=== PATIENT | female | born 1975 | race Two or more races ===

== ENCOUNTER 2023-10-09 06:27 | Day surgery (SDC) | payer OTHER ==
[2023-10-01 11:09] LABS: HEMATOCRIT 39.7 % (36.0-45.00); HEMOGLOBIN 13.5 g/dL (12.0-15.00); MEAN CELL VOLUME 92.3 fL (80.00-100.00); MEAN CORPUSCULAR HEMOGLOBIN 31.4 pg (27.00-32.0); PLATELET COUNT 213 K/uL (150-450); RED CELL DISTRIBUTION WIDTH 12.6 % (11.5-14.5)
[2023-10-01 11:34] LABS: INR 0.96; PARTIAL THROMBOPLASTIN TIME 25.5 SECONDS (22.0-34.0); PROTHROMBIN TIME 10.1 SECONDS (9.0-11.5)
[2023-10-01 13:08] LABS: BILIRUBIN TOTAL 0.39 mg/dL (0.3-1.2); CALCIUM 9.3 mg/dL (8.5-10.1); CREATININE SERUM 0.72 mg/dL (0.55-1.02); GFR 86.45; GLOBULINA 3.7 G/DL (2.4-3.5); POTASSIUM 4.12 mEq/L (3.5-5.1); TOTAL PROTEIN 7.7 gm/dL (6.4-8.2)
[2023-10-01 13:12] LABS: PH,URINE 6.5 (5.0-8.0); URINE APPEARANCE Clear; URINE BACTERIA 395.5 uL (0.0-1933); URINE BILIRRUBIN Negative (NEGATIVE); URINE BLOOD Negative; URINE COLOR Yellow; URINE EPITHELIAL CELLS 16.6 uL (0.0-38.8); URINE GLUCOSE Negative (NEGATIVE); URINE LEUKOCYTE Negative; URINE NITRATE Negative; URINE PROTEIN Negative (NEGATIVE); URINE UROBILINOGEN 0.2 E.U./dl; URINE WBC 2.9 uL (0.0-23.2)
[~2023-10-09] VITALS: Ht 157.5 cm; Wt 64.9 kg
[~2023-10-09 06:27] MED LIST: AMBIEN5 MG PO; FENOFIBRATE160 MG PO; FIORICET 50-301 EACH; GRALISE600 MG PO; NEURONTIN300 MG; ZEGERID 40 MG1 EACH PO
[2023-10-09] MEDS ORDERED: CEFAZOLIN SODIUM 1,000 MG VIAL IV ONE (14:30)
[2023-10-09] MEDS ORDERED: POVIDONE-IODINE 118 ML BOTT TOP ONE ×2 (14:30→16:28)
[2023-10-09] MEDS ORDERED: LIDOCAINE HCL 1%/Epi 20ML VIAL IJ ONE ×2 (16:28→16:45)
[2023-10-09] MEDS ORDERED: BUPIVACAINE HCL/PF 0.5% 30ML ML ONE (16:28)
[2023-10-09] MEDS ORDERED: CEFAZOLIN SODIUM 1,000 MG VIAL IV SCH (16:30)
[2023-10-09] MEDS ORDERED: BUPIVACAINE HCL/MPF 0.5% 30ML VIAL IJ ONE (16:45)
[2023-10-09] MEDS ORDERED: PROMETHAZINE HCL 50 MG/ML AMPUL IM ONE (17:30)
[2023-10-09] MEDS ORDERED: MORPHINE SULFATE 4 MG/ML VIAL IV PRN (17:30)
[2023-10-09] MEDS ORDERED: ONDANSETRON HCL 2 MG/ML VIAL ONE (19:44)
== END 2023-10-09 20:30 | disposition home or self-care (01) ==
LOC: CIR.AMB 06:27
PROVIDERS: Obstetrics & Gynecology; ATTEND Obstetrics & Gynecology
DX: N83.292 Other ovarian cyst, left side (principal); N83.291 Other ovarian cyst, right side; Z90.710 Acquired absence of both cervix and uterus